=== PATIENT | female | born 1990 | race Caucasian/White ===

== ENCOUNTER → 2019-10-31 08:43 | Outpatient (CLI) | payer OTHER, SELFPAY ==
[2019-11-01 10:18] LABS: Strep Grp B PCR NEG for Grp B Strep
== END ==
PROVIDERS: Visit Provider Family Medicine
DX: Z34.83 Encounter for supervision of other normal pregnancy, third trimester (principal); Z3A.36 36 weeks gestation of pregnancy
CPT/HCPCS: 87653

== ENCOUNTER 2019-11-17 17:44 | Inpatient (IN) | payer OTHER, SELFPAY ==
[2019-11-17] MEDS: LACTATED RINGERS 1,000 ML 100 ML IV ×2 (19:10→22:00)
[2019-11-17 19:29] LABS: Add Manual Diff / Slide Review NO; Basophils Absolute Auto 0 /uL (0-100); Basophils Percent Auto 0.5 % (0-2); Eosinophils Absolute Auto 100 /uL (0-450); Eosinophils Percent Auto 0.8 % (2-4); Hematocrit 36.9 % (36-46); Hemoglobin 12.4 g/dL (12.0-16.0); Lymphocytes Absolute Auto 1700 /uL (1100-4500); Lymphocytes Percent Auto 22.5 % (25-40); Mean Corpuscular HGB Conc 33.7 % (30-36); Mean Corpuscular Hemoglobin 28.7 PG (26-34); Mean Corpuscular Volume 85.2 fL (80-100); Monocytes Absolute Auto 500 /uL (0-900); Monocytes Percent Auto 6.5 % (3-14); Neutrophils Absolute Auto 5200 /uL (1500-7000); Neutrophils Percent Auto 69.7 % (50-75); Platelet Count 163 X10^3/uL (150-400); Red Blood Cell Count 4.33 X10^6/uL (4.0-5.2); Red Cell Distribution Width 14.1 % (11.6-14.8); White Blood Cell Count 7.4 X10^3/uL (4.5-11.0)
--- NOTE | 2019-11-17 19:51 | PM.HP.1 ---
History of Present Illness History of Present Illness Date Patient Seen: 11/17/19 Time Patient Seen: 19:00 Chief complaint: Obs Narrative: 28-year-old female G2 para 0 estimated due date of 11/28/2019 based on early ultrasound LMP 12/06/2019. Patient presents to labor and delivery floor in active labor. Patient states contractions started a little bit yesterday evening throughout the day and last night they were intermittent. This afternoon about 3:00 a.m. they became more regular anywhere from 6-7 minutes apart. Patient states the contractions were a little bit worse when walking around a little bit better when not walking around. This evening he became at times as close together is 5 minutes and they decided to present to the labor and delivery floor. Earlier this morning patient had loss of her mucus plug with a little spotting. She has not been leaking any amniotic fluid she has not had any fevers chills nausea vomiting and feels well. Patient transferred care at late of at approximately 33 weeks. care complications include 1 hour GGT which was 143 but normal 3 hour. Patient non weight was 140. weight currently 164. Blood pressure was normal throughout the . On evaluation on the labor and delivery floor she was joanne regularly blood pressure and vitals were normal she was afebrile examination by the nurse showed 5 cm 95% effaced and -1 station. On my review of the record hematocrit 12.4 in 36.9 GC chlamydia negative urine culture negative TSH 2.73 hepatitis-B surface antigen negative RPR nonreactive rubella immune blood type B positive antibody screen negative HIV nonreactive normal 20 week ultrasound. GBS status is negative. Past medical history of anemia anxiety migraines and amblyopia Surgical history eye surgery x2 D&C tonsils and adenoids Family history of breast cancer and depression Social history she is does not smoke does not use recreational drugs or alcohol during Patient History Medical History Anemia (Acute) Anxiety (Acute) Lyme disease (Acute) Migraines (Acute) Strabismic amblyopia of left eye (Acute) Surgical History H/O eye surgery (Acute) History of dilatation and curettage (Acute ~2018) Hx of adenoidectomy (Acute ~1994) [place] teeth extracted (Acute ~2007) Family & Social History Family History Mother Breast cancer Depression Father Thyroid condition Family/Other Cardiac hypertrophy Grandfather Heart disease Grandmother No problems noted. Grandfather Congestive heart failure Kidney failure Grandmother Congestive heart failure COPD (chronic obstructive pulmonary disease) Social History: household members spouse Tobacco & Substance use: Smoking Status Never smoker Meds Home Medications and Allergies Home Medications Medication Instructions Recorded Confirmed Type prenat.vits,reuben,gym-[id number]-[id number] 1 tab PO DAILY 10/12/19 11/14/19 History breast pump #1 each 10/17/19 11/14/19 Rx Allergies Allergy/AdvReac Type Severity Reaction Status Date / Time No Known Drug Allergies Allergy Verified 11/14/19 09:09 Exam Vital Signs (past 8 hours): . General: Alert no apparent distress. Affect is appropriate. Joanne it is uncomfortable. HEENT: Neck is supple without lymphadenopathy pupils equal round and reactive. Cardio: S1-S2 regular rate and rhythm. Respiratory: Lungs clear to auscultation. Abdomen: Gravid. Extremities: Normal deep tendon reflexes trace edema. Catharine: Joanne every 5 minutes moderate in intensity heart tones: Category 1 heart rate at 140 Objective Labs Result Diagrams: 11/17/19 19:19 Labs: Laboratory Results - last 24 hr 11/17/19 19:19 WBC 7.4 RBC 4.33 Hgb 12.4 Hct 36.9 MCV 85.2 MCH 28.7 MCHC 33.7 RDW 14.1 Plt Count 163 Neut % (Auto) 69.7 Lymph % (Auto) 22.5 L Bea[place]gard % (Auto) 6.5 Eos % (Auto) 0.8 L Baso % (Auto) 0.5 Neut # (Auto) 5200 Lymph # (Auto) 1700 [place] # (Auto) 500 Eos # (Auto) 100 Baso # (Auto) 0 Assessment & Plan Assessment & Plan narrative: 28-year-old female G2 para 0 at 38 and 3 weeks gestational age in labor. On my exam patient is 5-6 cm -1 station with bulging bag. Vital signs are stable she is afebrile she is joanne regularly. Patient is uncomfortable. And requesting an epidural. Patient care orders were written for. Consents were obtained and signed. Proceed with active management. Baby's heart tones and strip reviewed so category 1 tracing. Proceed with active management of labor.
--- NOTE | 2019-11-17 21:00 | PM.OBPNLAB ---
Date/Time Date Patient Seen: 11/17/19 Time Patient Seen: 21:00 Pain Control Pain control: tolerating well and epidural Pelvic Exam Dilation (cm): 6 Effacement (%): 90 station: -1 Amniotic membrane status: Leaking Contractions Contractions on admission: regular Monitor mode: External Contraction pattern: Regular Status status: Category l Heart Rate Baseline: 130 Monitor Accelerations: Present Monitor Variability: Moderate Assessment and Plan Assessment: active labor Plan: continuous present management Comments: Re-examination of cervix. 6 cm 90% effaced -1 station. Patient just received epidural doing well blood pressure stable heart tones category 1. Rupture of membranes clear fluid. Baby vertex position. Tolerating contractions much better with epidural. Vital signs are stable. Afebrile.
[2019-11-17] MEDS: FENT 2MCG/ML BUPIV 0.125% EPI 200 MCG/100 ML PLAST..BAG 6 MCG EPIDURAL (21:35)
[2019-11-17 22:54] VITALS: BP 120/80
--- NOTE | 2019-11-17 23:58 | PM.OBPNLAB ---
Date/Time Date Patient Seen: 11/17/19 Time Patient Seen: 23:40 Pain Control Pain control: tolerating well and epidural Pelvic Exam Dilation (cm): 9 Effacement (%): 90 station: 0 Amniotic membrane status: Leaking Contractions Monitor mode: External Contraction pattern: Regular Status status: Category l Monitor Accelerations: Present Monitor Variability: Moderate Assessment and Plan Assessment: active labor Plan: continuous present management Comments: Patient comfortable with epidural vital signs are stable. Category 1 tracing. Contractions Q 2-3 minutes. Patient not on Pitocin. Will start pushing here in the next hour or so.
[2019-11-18] MEDS: OXYTOCIN 10 UNIT/ML VIAL IM (01:15)
--- NOTE | 2019-11-18 01:29 | P.PCN_ITS ---
Procedures Date/Time Date of procedure: 11/18/19 Time of procedure: : General Procedure description: Stage I of labor 6 hours and hospital additional 4 hours at home. During hospital stay stage I of labor patient arrived received IV vero cement and blood testing normal hemoglobin hematocrit vital signs were stable on admission afebrile intact membranes 5 cm dilated -1 station. Patient requested an epidural received epidural anesthesia with good results. Patient made slow steady progress a till she became completed 10 cm. During stage I of labor she had category 1 tracing vital signs were stable she was afebrile. She had amniotomy at 6 cm with clear fluid. Baby made good descent through the canal. Stage II of labor 1 hour. During stage II of labor category 1 and category 2 tracing. Vital signs were stable. If baby descended gradually through the canal. Under at the dural anesthesia baby was born in the vertex position with occiput anterior. The delivery of the head shoulders were easily delivered there was no nuchal cord baby was placed on mother's abdomen. Baby had spontaneous cry and was vigorous. Stage III of labor approximately 10 minutes. Delivery of intact placenta 3 vessels. Was a small internal tear which was repaired with a 2 0 Vicryl stitch without difficulty. Patient had 2 small skin tags on her perineal area which she would desire to have removed these were removed at the time of repair of the midline perineal tear. Afterwards baby was resting comfortably. Aftercare orders were written for per protocol.
[2019-11-18 07:08] LABS: Hematocrit 32.5 % (36-46); Hemoglobin 11.1 g/dL (12.0-16.0)
[2019-11-18] MEDS: DOCUSATE 100 MG CAPSULE PO (08:43)
[2019-11-18] MEDS: PRENATAL VIT,CALC/IRON/FOLIC 1 TABLET 1 TAB PO (08:43)
--- NOTE | 2019-11-18 09:02 | PM.PN.1 ---
Subjective Subjective Date Patient Seen: 11/18/19 Time Patient Seen: 09:02 Interval history: 28-year-old female day 1. Status post vaginal delivery doing well. Some mild abdominal cramping. Normal urination. Eating well. She has ambulated okay. No lightheaded and dizziness vital signs are stable. Bleeding as anticipated. No nursing staff concerns. Exam Narrative Exam Narrative: Vitals: [Pulse 68 respiratory rate 18 temperature 9 8.8 input 2400 output 1800]. General: Alert no apparent distress. Affect is appropriate. Charo it is uncomfortable. HEENT: Neck is supple without lymphadenopathy pupils equal round and reactive. Cardio: S1-S2 regular rate and rhythm. Respiratory: Lungs clear to auscultation. Abdomen: Uterus firm. Extremities: Normal deep tendon reflexes trace edema. Objective Labs Result Diagrams: 11/18/19 06:25 Labs: Laboratory Results - last 24 hr 11/17/19 11/17/19 11/18/19 19:19 19:19 06:25 WBC 7.4 RBC 4.33 Hgb 12.4 11.1 L Hct 36.9 32.5 L MCV 85.2 MCH 28.7 MCHC 33.7 RDW 14.1 Plt Count 163 Neut % (Auto) 69.7 Lymph % (Auto) 22.5 L Bartholomew % (Auto) 6.5 Eos % (Auto) 0.8 L Baso % (Auto) 0.5 Neut # (Auto) 5200 Lymph # (Auto) 1700 Bartholomew # (Auto) 500 Eos # (Auto) 100 Baso # (Auto) 0 Blood Type B Positive Antibody Screen Negative Assessment & Plan Assessment & Plan narrative: day 1. Vaginal delivery doing well. No concerns. Continue routine care hemoglobin hematocrit vital signs stable pain is well controlled with ibuprofen vaginal bleeding as expected. Tolerating diet. Good bladder control.
[2019-11-18] MEDS: IBUPROFEN 600 MG TABLET PO (20:08)
[2019-11-19] MEDS: IBUPROFEN 600 MG TABLET PO (08:08)
[2019-11-19] MEDS: PRENATAL VIT,CALC/IRON/FOLIC 1 TABLET 1 TAB PO (08:08)
[2019-11-19] MEDS: DOCUSATE 100 MG CAPSULE PO (08:08)
--- NOTE | 2019-11-19 08:24 | PM.DS.1 ---
History of Present Illness History of Present Illness Chief complaint: Obs Narrative: 28-year-old female G2 para 0 estimated due date of 11/28/2019 based on early ultrasound LMP 12/06/2019. Patient presents to labor and delivery floor in active labor. Patient states contractions started a little bit yesterday evening throughout the day and last night they were intermittent. This afternoon about 3:00 a.m. they became more regular anywhere from 6-7 minutes apart. Patient states the contractions were a little bit worse when walking around a little bit better when not walking around. This evening he became at times as close together is 5 minutes and they decided to present to the labor and delivery floor. Earlier this morning patient had loss of her mucus plug with a little spotting. She has not been leaking any amniotic fluid she has not had any fevers chills nausea vomiting and feels well. Patient transferred care at late of at approximately 33 weeks. care complications include 1 hour GGT which was 143 but normal 3 hour. Patient non weight was 140. weight currently 164. Blood pressure was normal throughout the . On evaluation on the labor and delivery floor she was joanne regularly blood pressure and vitals were normal she was afebrile examination by the nurse showed 5 cm 95% effaced and -1 station. On my review of the record hematocrit 12.4 in 36.9 GC chlamydia negative urine culture negative TSH 2.73 hepatitis-B surface antigen negative RPR nonreactive rubella immune blood type B positive antibody screen negative HIV nonreactive normal 20 week ultrasound. GBS status is negative. Past medical history of anemia anxiety migraines and amblyopia Surgical history eye surgery x2 D&C tonsils and adenoids Family history of breast cancer and depression Social history she is does not smoke does not use recreational drugs or alcohol during Discharge Providers Provider Date of admission: 11/17/19 17:44 Discharge Date: 11/19/19 Primary care physician: Cheng Gayle MD Consults: 11/19/19 01:32 Consult to Draw Frame Operator Routine Comment: Discharge provider: Cheng Gayle MD Summary Hospital Course Discharge Diagnosis: Term vaginal delivery Hospital Course: Routine care Exam Vital Signs (past 8 hours): . General: Alert no apparent distress. Affect is appropriate. Joanne it is uncomfortable. HEENT: Neck is supple without lymphadenopathy pupils equal round and reactive. Cardio: S1-S2 regular rate and rhythm. Respiratory: Lungs clear to auscultation. Abdomen: Uterus firm. Extremities: Normal deep tendon reflexes trace edema. Objective Labs Result Diagrams: 11/18/19 06:25 Discharge Plan Discharge Plan Patient Disposition: Home Discharge comment: Home follow-up in 6 weeks Discharge orders & Medications Prescriptions: New docusate sodium [DOK] 100 mg Capsule 100 mg PO DAILY Qty: 30 RF: 0 ibuprofen 600 mg Tablet 600 mg PO Q6HR PRN (Reason: Pain, Mild (1-3)) Qty: 30 RF: 0 Continued prenat.vits,reuben,cew-uaec-[id number] Tablet 1 tab PO DAILY RF: 0 No Action (DME) breast pump Device See Rx Instructions .ROUTE .MEDSUPPLY Qty: 1 RF: 0 Follow up/Referrals: Cheng Gayle MD [Primary Care Provider] - Visit Report/Discharge Packet Visit Report Forms: Patient Portal/API, Stroke Signs & Symptoms Discharge Data Primary Care Provider: Cheng Gayle
[2019-11-19 11:16] VITALS: BP 108/66; PULSE 74; RESP 16; TEMP 36.4
[2019-11-19] MEDS: MEASLES,MUMPS,RUBELLA VACC/PF 0.5 ML VIAL SUBCUT (12:06)
== END 2019-11-19 12:20 | disposition home or self-care (01) | DRG 768 ==
PROVIDERS: Admitting Provider Family Medicine; PCP Family Medicine; Referring Provider Family Medicine; Visit Provider Family Medicine
DX: O71.4 Obstetric high vaginal laceration alone (principal); Z37.0 Single live birth; L91.8 Other hypertrophic disorders of the skin; Z3A.38 38 weeks gestation of pregnancy
CPT/HCPCS: 01967; 36415; 59050; 59410; 85014; 85018; 85025; 86850; 86900; 86901; G0379; J2590

== ENCOUNTER → 2022-01-14 13:02 | Outpatient (CLI) | payer OTHER, SELFPAY ==
[2022-01-14 13:55] LABS: Add Manual Diff / Slide Review NO; Basophils Absolute Auto 0 /uL (0-100); Basophils Percent Auto 0.4 % (0-2); Eosinophils Absolute Auto 100 /uL (0-450); Eosinophils Percent Auto 1.9 % (2-4); Hematocrit 35.1 % (36-46); Hemoglobin 12.1 g/dL (12.0-16.0); Lymphocytes Absolute Auto 1700 /uL (1100-4500); Lymphocytes Percent Auto 23.7 % (25-40); Mean Corpuscular HGB Conc 34.3 % (30-36); Mean Corpuscular Hemoglobin 28.9 PG (26-34); Mean Corpuscular Volume 84.1 fL (80-100); Monocytes Absolute Auto 500 /uL (0-900); Monocytes Percent Auto 6.4 % (3-14); Neutrophils Absolute Auto 5000 /uL (1500-7000); Neutrophils Percent Auto 67.6 % (50-75); Platelet Count 188 X10^3/uL (150-400); Red Blood Cell Count 4.18 X10^6/uL (4.0-5.2); Red Cell Distribution Width 13.2 % (11.6-14.8); White Blood Cell Count 7.4 X10^3/uL (4.5-11.0)
[2022-01-14 14:02] LABS: Appearance Urine UA CLEAR; Bilirubin Urine UA NEGATIVE (NEGATIVE); Color Urine UA YELLOW; Glucose Urine UA NEGATIVE (Negative); Ketones Urine UA TRACE (NEGATIVE); Leukocyte Esterase Urine UA TRACE (NEGATIVE); Nitrite Urine UA NEGATIVE (Negative); Occult Blood Urine UA 1+ (Negative); Protein Urine UA NEGATIVE (Negative); Urobilinogen Urine UA 0.2 E.U./dL (0.2)
[2022-01-14 14:13] LABS: RBC Urine 1-5/HPF (0-5/HPF); Squamous Epithelial Cell Urine 5-10 /HPF (0-5/HPF); WBC Urine 5-10/HPF (0-5/HPF)
[2022-01-14 14:14] LABS: Bacteria Urine Many (>30); Culture Indicated Urine Cult Not Indicated
[2022-01-15 07:44] LABS: RPR Screen Non Reactive (Non Reactive); Varicella IgG Antibody 951 index (Immune >165)
[2022-01-15 20:36] LABS: Hepatitis B Surface Antigen NEGATIVE s/c (NEGATIVE); Rubella Antibody IgG 58.6 IU/mL (>15)
[2022-01-15 20:47] LABS: HIV 1 & 2 Ab/Ag 4th Gen Combo NEGATIVE (NEGATIVE); Hep C Virus Ab w/Reflex Quant NEGATIVE s/c (NEGATIVE)
== END ==
PROVIDERS: PCP Family Medicine; Referring Provider Family Medicine; Visit Provider Family Medicine
DX: Z34.80 Encounter for supervision of other normal pregnancy, unspecified trimester (principal)
CPT/HCPCS: 36415; 80055; 81003; 81015; 86787; 86803; 86850; 86900; 86901; 87077; 87086; 87186; 87389

== ENCOUNTER → 2022-02-12 12:17 | Outpatient (CLI) | payer OTHER, SELFPAY ==
--- NOTE | 2022-02-12 12:18 | DI.US.S_ITS ---
PROCEDURE: US OB >= 14 WEEKS FETUS INDICATIONS: 20 WEEK ANATOMY SCAN. OUTSIDE/PRIOR DATING DATA: Last menstrual period (LMP): 09/28/2021. LMP-based estimated date of delivery (HUE): 07/05/2022. First dating scan (date and location): 02/12/2022. Estimated date of delivery (HUE) from first dating scan: 06/30/2022. TECHNIQUE: Real-time scanning was performed of the fetus, with image documentation and biometric measurements. Endovaginal scanning: No COMPARISON: None. FINDINGS: General: A single living intrauterine gestation is present. Presentation: Variable. Placenta: Placental position is posterior , without previa. Amniotic fluid index: 15.6 cm, normal range is 5-24 cm. heart rate: 153 beats per minute. Maternal cervical canal: 4.5 cm long. Normal lower limit is 2.5 cm. biometrics: Biparietal diameter: 4.9 cm, 20 week 6 day Head circumference: 17.8 cm, 20 week 2 day Abdominal circumference: 15.2 cm, 20 week 3 day Femur length: 3.1 cm, 19 week 4 day Clinically estimated gestational age: Not applicable Composite gestational age from present scan: 20 week 2 day Estimated weight and percentile: 329 g, 73rd percentile Anatomic survey: Neuro: Ventricles are non-dilated at less than 10 mm. Cisterna magna is normal at 3-11 mm. Cerebellum is normal in size and morphology. Nuchal skin fold: Normal at less than 6 mm between 14-21 weeks gestational age. Face: Not well visualized, but possible small cleft in the lip Spine: No evidence for spina bifida. Heart: 4-chambered heart is present, with normal ventricular outflow tracts. Diaphragm: Diaphragm is intact. Stomach: Left-sided stomach is present. Kidneys: No hydronephrosis. Normal is less than 5 mm in 2nd trimester, less than 7 mm in 3rd trimester. Cord: Probable 2 vessel cord noted. Bladder: Normal in size. Extremities: All 4 extremities identified. IMPRESSION: 1. Single live intrauterine consistent with 20 week 2 day gestation. 2. 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 Approved by: Stanley Self M.D. on 02/12/2022 at 14:29
== END ==
PROVIDERS: PCP Family Medicine; Referring Provider Family Medicine; Visit Provider Family Medicine
DX: Z36.89 Encounter for other specified antenatal screening (principal); Z3A.20 20 weeks gestation of pregnancy
CPT/HCPCS: 76811

== ENCOUNTER → 2022-04-25 07:45 | Outpatient (CLI) | payer OTHER, SELFPAY ==
[2022-04-25 09:57] LABS: Add Manual Diff / Slide Review NO; Basophils Absolute Auto 0 /uL (0-100); Basophils Percent Auto 0.6 % (0-2); Eosinophils Absolute Auto 200 /uL (0-450); Eosinophils Percent Auto 3.2 % (2-4); Hematocrit 33.9 % (36-46); Hemoglobin 11.3 g/dL (12.0-16.0); Lymphocytes Absolute Auto 1500 /uL (1100-4500); Mean Corpuscular HGB Conc 33.4 % (30-36); Mean Corpuscular Hemoglobin 28.5 PG (26-34); Mean Corpuscular Volume 85.2 fL (80-100); Monocytes Absolute Auto 600 /uL (0-900); Monocytes Percent Auto 7.4 % (3-14); Neutrophils Absolute Auto 5100 /uL (1500-7000); Neutrophils Percent Auto 68.8 % (50-75); Platelet Count 157 X10^3/uL (150-400); Red Blood Cell Count 3.98 X10^6/uL (4.0-5.2); Red Cell Distribution Width 13.6 % (11.6-14.8); White Blood Cell Count 7.5 X10^3/uL (4.5-11.0)
[2022-04-25 11:43] LABS: GTT (PREG) 1 Hour PP 50gm Dose 160 mg/dL (76-139)
== END ==
PROVIDERS: PCP Family Medicine; Referring Provider Family Medicine; Visit Provider Family Medicine
DX: Z34.92 Encounter for supervision of normal pregnancy, unspecified, second trimester (principal); Z3A.28 28 weeks gestation of pregnancy
CPT/HCPCS: 36415; 82950; 85025

== ENCOUNTER → 2022-05-01 13:39 | Outpatient (CLI) | payer OTHER, SELFPAY ==
--- NOTE | 2022-05-21 08:56 | P.HOLT.S_ITS ---
Support Representative Report Referral & Results Date Patient Seen: 05/01/22 Requesting provider: Carolyn Redman Indication: Palpitations Duration of monitoring (days): 13 Diary information: There was 1 patient triggered event associated with sinus rhythm Data: Minimum heart rate identified was 54 beats per minute at 01:44 on 05/10/2022 Maximum sinus heart rate was 135 beats per minute at 06:45 on 05/10/2022. This was also the maximum overall heart rate Less than 1% of identified beats were ventricular or supraventricular ectopic in origin, which would classify them as rare. There were no episodes of atrial fibrillation SVT or pauses of 3 seconds or longer identified on this study Impression: 12+ day registered nurse cardiac demonstrating no notable dysrhythmia
== END ==
PROVIDERS: PCP Family Medicine; Referring Provider Family Medicine; Visit Provider Family Medicine
DX: Z34.90 Encounter for supervision of normal pregnancy, unspecified, unspecified trimester (principal); R00.2 Palpitations
CPT/HCPCS: 93242; 93248

== ENCOUNTER → 2022-05-07 07:54 | Outpatient (CLI) | payer OTHER, SELFPAY ==
[2022-05-07 08:59] LABS: Glucose Fasting Gestational 87 mg/dL (76-95)
[2022-05-07 10:32] LABS: Glucose 1 Hour Gest 209 mg/dL (76-180)
[2022-05-07 11:04] LABS: Glucose 2 Hour Gest 148 mg/dL (76-155)
[2022-05-07 11:21] LABS: Glucose Tol Interp,Gestational INTERPRETATION
[2022-05-07 12:08] LABS: Glucose 3 Hour Gest 140 mg/dL (76-140)
== END ==
PROVIDERS: PCP Family Medicine; Referring Provider Family Medicine; Visit Provider Family Medicine
DX: Z34.80 Encounter for supervision of other normal pregnancy, unspecified trimester (principal); R73.09 Other abnormal glucose
CPT/HCPCS: 36415; 82951; 82952

== ENCOUNTER → 2022-05-15 08:35 | Outpatient (CLI) | payer OTHER, SELFPAY ==
--- NOTE | 2022-05-15 15:15 | DIAB.GDA ---
Initial Gestational Diabetes Assessment Name: Janie Arana (Codi) Date: 05/15/22 Time:840-940a Dx: Abnormal glucose in Provider:Feroz HUE: 07/05/22 Weeks: 33 Codi presents today for initial visit regarding abnormal OGTT. No official GDM diagnosis. States she had a similar OGTT with her last with her daughter 2.5 years ago. Codi is having a boy! States she is [place] and eats mostly Mediterranean with some dairy. Has recently reduced carb intake in response to elevated OGTT. Eats small frequent meals. Endorses some early satiety this stage in the . States the baby is measuring a little big inthe 70th percentile. Also states he is measuring long. 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 Diet Recall: wakes: 630-730a 930-10a: egg, toast, fruit or protein shake (30-50g CHO) 130-2p: leftovers or crackers with beans and zucchini (30-45g CHO) 4p: chicken salad with veggies and +/- fruit (0-20g CHO) 7p: chicken with veggies, 1/3-1/2c rice and salad (15-20g CHO) Beverages: 80-96oz water, sometimes coconut water (8oz is 11g CHO) Anthropometrics: Ht: 64 Wt: 164# last OB Prepregnancy wt: 139# Physical Activity: Stationary bike 2-3x per week for 30-40 min, weight training 3-4 x per week for 20 min, yoga 15 min daily Self-Monitoring Blood Glucose: Has not started yet. States the plan is to check FBG and 1 x 2hr pc per day Diabetes Medications: None Pertinent Labs: Screen 160 mg/dL; OGTT: 87, 209H, 148, 140 Nutrition Rx: Carbohydrates: Daily: 180-200g Meal: 45-g lunch and dinner; 30g breakfast Snack: 15-30g Nutrition Diagnosis: Altered nutrition related lab value r/t GDM dx aeb recent OGTT Nutrition and food related knowledge deficit r/t new abnormal glucose dx aeb OGTT and pt report Intervention: This participant was very receptive. Provided appropriate educational handouts. Discussed the following topics: Insulin resistance in pathophysiology and impact of hyperglycemia on mom and baby Ways to reduce risk T2DM Plate Method, meal timing, carb counting, pairing macronutrients and spreading out CHO for better BG management Blood glucose goals (FBG: <95 and 2 hour <120 mg/dL); importance of checking 2x per day (FBG and pc) Impact of macronutrients on blood glucose Recommended servings for carbohydrates at meals and snacks Brainstormed appropriate meal plan based on her food preferences Role of physical activity and following provider guidelines for safety Goals: Check BG BID Balance carbs and pro at meals and snacks Follow nutrition rx Add 730 am snack Follow-up: FLORECITA ALBERTS follow-up in one week for BG review. Plans to see OB in two weeks. Heather Ac RDN, [facility] Certified Diabetes Care and Unit Technician T: [phone] F: [phone] [email or web address] Thank you for this referral
== END ==
PROVIDERS: PCP Family Medicine; Referring Provider Family Medicine; Visit Provider Family Medicine
DX: O99.810 Abnormal glucose complicating pregnancy (principal); Z3A.33 33 weeks gestation of pregnancy; Z71.3 Dietary counseling and surveillance
CPT/HCPCS: 97802

== ENCOUNTER → 2022-05-21 08:29 | Outpatient (CLI) | payer OTHER, SELFPAY ==
--- NOTE | 2022-05-21 09:21 | DIAB.GDFU ---
Follow-up Assessment Name: Janie Arana (Codi) Date: 05/21/22 Time: 830-910a Dx: Abnormal glucose in Provider:Feroz HUE: 07/05/22 Weeks: 33-34 Codi presents for follow-up regarding elevated OGTT. States she has been pairing carbs and pro, exercising, and checking BG BID. Baby is measuring large but seems providers are thinking this is unrelated to BG, which I would agree. She reports father is a bigger person and her family births large babies. She has increased pro at breakfast with an extra egg. Tried adding shake in the peoplesoft crm developer, but states this has been a challenge- waking later in the morning. Reports for a few months with her daughter. Potential for clef palate-- has received specialized bottles for this from [facility] and her breast pump. Some higher carb meals, which rendered one elevation. Otherwise, has been measuring carb intake. Reduced appetite but no weight loss. Anthropometrics: Ht: 64 Wt: 167# last OB Prepregnancy wt: 139# Physical Activity: Stationary bike 2-3x per week for 30-40 min, weight training 3-4 x per week for 20 min, yoga 15 min daily Self-Monitoring Blood Glucose: No FBG elevations. One 52 mg/dL after extended fast and waking very hungry. No symptoms of hypo. Questions regarding if she should check FBG after her workout or before. Suggested before. Another low breakfast pc of 69 mg/dL after weight lifting, small breakfast and waiting 2.5 hrs to check. One elevated pc number after dinner of 148 with sweets late in evening. Date Pre Post Pre Post Pre Post HS 05/14 77 05/15 92 107 05/16 86 148 05/14 94 1119 05/18 93 85 05/19 89 69 2.5h 109 05/20 52 118 05/21 88 Diabetes Medications: None Pertinent Labs: Screen 160 mg/dL; OGTT: 87, 209H, 148, 140 Intervention: This participant was very receptive. Provided appropriate educational handouts. Discussed the following topics: Recent blood sugar results and impact of food and exercise Pancreas insulin production/sensitivity and lows Review of FBG checks pre workout, encouraged snack prior to workout Benefits, resources, and nutrition for recommendations for nutrition and physical activity recommendations for T2DM risk reduction Option for checking blood sugars twice per week (goal: fasting <100 mg/dL and 2 hour pc <140 mg/dL) until 6 week check-up HgA1c as appropriate Goals: Check BG BID- met Balance carbs and pro at meals and snacks- met Follow nutrition rx- met Add 730 am snack- met Check FBG pre workout- new Follow-up: FLORECITA ALBERTS follow-up prn. Encouraged Codi to call or message with follow-up needs prn. She agreed to this plan. Heather Ac RDN, [facility] Certified Diabetes Care and Director Talent Management T: [phone] F: [phone] [email or web address] Thank you for this referral
== END ==
PROVIDERS: PCP Family Medicine; Referring Provider Family Medicine; Visit Provider Family Medicine
DX: O99.810 Abnormal glucose complicating pregnancy (principal); Z3A.33 33 weeks gestation of pregnancy
CPT/HCPCS: G0108

== ENCOUNTER 2022-06-05 13:23 | Outpatient (CLI) | payer OTHER, SELFPAY ==
--- NOTE | 2022-06-05 13:51 | PM.OBTRLD ---
Visit Information Visit Information Date of evaluation: 06/05/22 Primary OB Provider: Kellee Martinez On-call OB Provider: Kellee Martinez Reason for Evaluation: Yes non-stress test Comments/Additional reasons for admission: 31-year-old at 35 weeks and 5 days here for NST due to 2 vessel cord and cleft palate. Vital Signs Vital Signs: Temperature 36.5? blood pressure 120/66 heart rate 80 PFSH Medical History Anemia Anxiety Dysphagia Gum disease Lyme disease Migraines Strabismic amblyopia of left eye Surgical History H/O eye surgery History of dilatation and curettage (~2018) History of tonsillectomy [place] teeth extracted (~2006) Family History Mother Breast cancer Depression Father Thyroid condition Family/Other Cardiac hypertrophy Grandfather Heart disease Grandmother No problems noted. Grandfather Congestive heart failure Kidney failure Grandmother Congestive heart failure COPD (chronic obstructive pulmonary disease) Social History marital status: number of children: 1 household members: spouse and children lives independently: Yes housing: house pets and animals: Yes (Dog X 1, aware of Toxoplasmosis) education level: college occupational status: unemployed ([employer]) and previously employed current occupational exposures/hazards: No special raul needs: No seatbelt use: always water heater temp set < 120 deg: Yes working smoke detector in home: Yes fire extinguisher in home: Yes carbon monox detector in home: Yes firearms in home: Yes firearms unloaded and locked: Yes do you feel safe at home: Yes Smoking Status: Never smoker second hand exposure: No alcohol intake: former substance use type: does not use during the past year weight has: remained stable well-balanced diet: daily or most days daily servings fruits/ve-4 caffeine: No (200mg per day) Type(s) of exercise: regular exercise frequency: 3-4 times per week Evaluation Evaluation Baseline heart rate: 130 Variability: Moderate (11-25) monitor accelerations: Present Monitor Decelerations: Absent Category of Tracing: Reactive Diagnosis, Plan/Disposition Final Diagnosis (1) 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 NST reactive. Follow-up as scheduled in clinic or return sooner if needed. OB Disposition: home
== END 2022-06-05 14:00 | disposition home or self-care (01) ==
LOC: LABOR 13:51 → OB 06-06 08:30
PROVIDERS: PCP Family Medicine; Referring Provider Family Medicine; Visit Provider Family Medicine
DX: O35.8XX0 Maternal care for other (suspected) fetal abnormality and damage, not applicable or unspecified (principal); Z3A.35 35 weeks gestation of pregnancy
CPT/HCPCS: 59025; G0378; G0379

== ENCOUNTER 2022-06-13 13:55 | Outpatient (CLI) | payer OTHER, SELFPAY ==
--- NOTE | 2022-06-13 15:01 | P.TNLD_ITS ---
Visit Information Visit Information Date of evaluation: 06/13/22 Primary OB Provider: Carolyn Redman Reason for Evaluation: Yes non-stress test Comments/Additional reasons for admission: 31yo at 36w6d here for NST for 2 vessel cord. She is feeling her baby move regularly. No vaginal bleeding or LOF. Intermittent contractions. [facility] Medical History Anemia Anxiety Dysphagia Gum disease Lyme disease Migraines Strabismic amblyopia of left eye Surgical History H/O eye surgery History of dilatation and curettage (~2018) History of tonsillectomy [place] teeth extracted (~2006) Family History Mother Breast cancer Depression Father Thyroid condition Family/Other Cardiac hypertrophy Grandfather Heart disease Grandmother No problems noted. Grandfather Congestive heart failure Kidney failure Grandmother Congestive heart failure COPD (chronic obstructive pulmonary disease) Social History marital status: number of children: 1 household members: spouse and children lives independently: Yes housing: house pets and animals: Yes (Dog X 1, aware of Toxoplasmosis) education level: college occupational status: unemployed (IH) and previously employed current occupational exposures/hazards: No special raul needs: No seatbelt use: always water heater temp set < 120 deg: Yes working smoke detector in home: Yes fire extinguisher in home: Yes carbon monox detector in home: Yes firearms in home: Yes firearms unloaded and locked: Yes do you feel safe at home: Yes Smoking Status: Never smoker second hand exposure: No alcohol intake: former substance use type: does not use during the past year weight has: remained stable well-balanced diet: daily or most days daily servings fruits/ve-4 caffeine: No (200mg per day) Type(s) of exercise: regular exercise frequency: 3-4 times per week Evaluation Evaluation Baseline heart rate: 120 Variability: Moderate (11-25) monitor accelerations: Present Monitor Decelerations: Absent Category of Tracing: Reactive Diagnosis, Plan/Disposition Final Diagnosis (1) Two vessel umbilical cord: Status: Acute (2) Encounter for supervision of other normal , unspecified trimester: Status: Acute Plan/Disposition Plan: 31yo at 36w6d here for NST for 2 vessel cord. NST reactive. Continue weekly testing. OB Disposition: home
== END 2022-06-13 14:40 | disposition home or self-care (01) ==
LOC: LABOR 14:00 → OB 06-25 12:13
PROVIDERS: PCP Family Medicine; Referring Provider Family Medicine; Visit Provider Family Medicine
DX: O43.193 Other malformation of placenta, third trimester (principal); Z3A.36 36 weeks gestation of pregnancy; Z36.85 Encounter for antenatal screening for Streptococcus B
CPT/HCPCS: 59025; 87653; G0378; G0379

== ENCOUNTER → 2022-06-13 15:34 | Outpatient (CLI) | payer OTHER, SELFPAY ==
[2022-06-14 12:36] LABS: Strep Grp B PCR NEG for Grp B Strep
== END ==
PROVIDERS: PCP Family Medicine; Visit Provider Family Medicine
DX: Z36.85 Encounter for antenatal screening for Streptococcus B (principal)
CPT/HCPCS: 87653

== ENCOUNTER 2022-06-18 16:40 | Observation (INO) | payer OTHER, SELFPAY | END 2022-06-18 19:30 | disposition home or self-care (01) | LOC: LABOR 16:42 | PROVIDERS: Admitting Provider Family Medicine; PCP Family Medicine; Referring Provider Family Medicine; Visit Provider Family Medicine | DX: O47.1 False labor at or after 37 completed weeks of gestation (principal); Z3A.37 37 weeks gestation of pregnancy | CPT/HCPCS: 59025; 59050; G0378; G0379 ==

== ENCOUNTER 2022-06-27 21:04 | Outpatient (CLI) | payer OTHER, SELFPAY | END 2022-06-27 22:20 | disposition home or self-care (01) | LOC: OB 07-01 14:13 | PROVIDERS: PCP Family Medicine; Referring Provider Obstetrics & Gynecology; Visit Provider Obstetrics & Gynecology | DX: O47.1 False labor at or after 37 completed weeks of gestation (principal); Z3A.38 38 weeks gestation of pregnancy | CPT/HCPCS: 59025; G0378; G0379 ==

== ENCOUNTER 2022-06-28 18:06 | Inpatient (IN) | payer OTHER, SELFPAY ==
[2022-06-28 18:09] VITALS: BP 131/75
[2022-06-28 20:18] LABS: Add Manual Diff / Slide Review NO; Basophils Absolute Auto 100 /uL (0-100); Basophils Percent Auto 0.8 % (0-2); Eosinophils Absolute Auto 200 /uL (0-450); Eosinophils Percent Auto 1.6 % (2-4); Hematocrit 35.7 % (36-46); Hemoglobin 12.1 g/dL (12.0-16.0); Lymphocytes Absolute Auto 1800 /uL (1100-4500); Lymphocytes Percent Auto 18.3 % (25-40); Mean Corpuscular Volume 82.6 fL (80-100); Monocytes Absolute Auto 700 /uL (0-900); Monocytes Percent Auto 6.7 % (3-14); Neutrophils Absolute Auto 7000 /uL (1500-7000); Neutrophils Percent Auto 72.6 % (50-75); Platelet Count 168 X10^3/uL (150-400); Red Blood Cell Count 4.32 X10^6/uL (4.0-5.2); Red Cell Distribution Width 14.7 % (11.6-14.8); White Blood Cell Count 9.7 X10^3/uL (4.5-11.0)
[2022-06-28] MEDS: LACTATED RINGERS 1,000 ML 100 ML IV ×2 (20:24→21:39)
[2022-06-28 20:51] LABS: COVID19 -Nasal RAPID Negative (Negative)
--- NOTE | 2022-06-28 20:51 | PM.AN.REGBLK ---
Regional Block Pre-procedure Procedure: Continuous Lumbar Epidural for L&D Attending OB provider: Carolyn Redman PMH/ROS narrative: term labor, no complications. MFM following for cleft palate ASA Class: II Labs: Hct 35.7 % (36-46) L 06/28/22 18:30 Plt Count 168 X10^3/uL (150-400) 06/28/22 18:30 Medications: Current Medications Generic Name Dose Route Start Last Admin Trade Name Freq PRN Reason Stop Dose Admin Calcium Carbonate 500 mg 06/28/22 19:46 Calcium Carbonate 500 Mg Tab PO Q2HR PRN Dyspepsia Carboprost Tromethamine 250 mcg 06/28/22 19:46 Carboprost 250 Mcg/Ml Ampul IM Q90M PRN Bleeding Diphenhydramine HCl 25 mg 06/28/22 20:49 Diphenhydramine 50 Mg/Ml Vial IV Q10M PRN Pruritis Fentanyl 50 mcg 06/28/22 19:46 Fentanyl 100 Mcg/2 Ml Inj IV Q1H PRN Pain, Moderate (4-6) Lactated Ringer's 1,000 mls @ 100 mls/hr 06/28/22 20:00 06/28/22 20:24 Lactated Ringers IV 100 mls/hr CONT LEXUS Administration Oxytocin/Lactated Ringer's 30 unit in 500 mls @ 200 mls/hr 06/28/22 19:46 Oxytocin Premix IV CONT PRN Bleeding Protocol Tranexamic Acid 1,000 mg/ 100 mls @ 200 mls/hr 06/28/22 19:46 Sodium Chloride IV NOW PRN Bleeding FENT 2MCG/ML BUPIV 0.125% EPI 200 mcg in 100 mls @ 6 mls/hr 06/28/22 21:00 Fentanyl/Bupiv/Ns 2mcg/Ml - 0.125% EPIDURAL CONT LEXUS Methylergonovine Maleate 0.2 mg 06/28/22 19:46 Methylergonovine 0.2 Mg Tablet PO Q6HR PRN Heavy Bleeding Methylergonovine Maleate 0.2 mg 06/28/22 19:46 Methylergonovine 0.2 Mg/Ml Vial IM NOW PRN Bleeding Misoprostol 800 mcg 06/28/22 19:46 Misoprostol 200 Mcg Tablet [place] NOW PRN Bleeding Misoprostol 1,000 mcg 06/28/22 19:46 Misoprostol 200 Mcg Tablet [place] NOW PRN Bleeding Misoprostol 400 mcg 06/28/22 19:46 Misoprostol 200 Mcg Tablet SL NOW PRN Bleeding Nalbuphine HCl 2.5 mg 06/28/22 20:49 Nalbuphine 20 Mg/Ml Ampul IV Q10M PRN Pruritis Naloxone HCl 0.2 mg 06/28/22 19:46 Naloxone 0.4 Mg/Ml Vial IV Q2MIN PRN Opiate Reversal Ondansetron HCl 4 mg 06/28/22 19:46 Ondansetron 4 Mg/2 Ml Inj IV Q4HR PRN Nausea And Vomiting Oxytocin 10 unit 06/28/22 19:46 Oxytocin 10 Unit/Ml Vial IM NOW PRN Bleeding Allergies: Allergies Allergy/AdvReac Type Severity Reaction Status Date / Time No Known Drug Allergies Allergy Verified 06/02/22 13:50 Procedure Insertion date: 06/28/22 Insertion time: 21:06 Prep/Local: betadine x3 and 1% lidocaine Interspace: L3-4 Patient position: sitting Needle: 18 gauge Justinmind (CSE: 27g Pencan through Hustead, clear CSF, 2.5mg MPF bupiv) Loss of resistance with: saline AVILA at (cm): 6 Catheter placed at SKIN (cm): 11 Catheter in SPACE (cm): 5 Insertion: No CSF, No Blood, No Paresthesia with insertion, No Paresthesia with injection and No Test dose reaction Initial Medications TEST DOSE time: 21:07 TEST DOSE: 1.5% lidocaine with epinephrine 1:200k (mL): 3 BOLUS DOSE time: 21:19 BOLUS DOSE (mL): 4 BOLUS DOSE med: other (infusate) Infusion INFUSION: 0.125% bupivacaine and with fentanyl 2 mcg/mL Initial rate (mL/hr): 8 Post-procedure Anesthesia time START: 20:51 Anesthesia time END: 06:02 Post-procedure Anesthesia Assessment: Yes CV function: HR/BP stable, Yes Resp function: RR/sat/airway adequate, Yes Mental status appropriate and No Anesthesia complications
--- NOTE | 2022-06-28 22:34 | PM.OBHP.IH.1 ---
OB HPI Date/Time Date of admission: 06/28/22 Date Patient Seen: 06/28/22 Time Patient Seen: 22:34 History of Present Condition Chief complaint: Contractions HUE Calculator Estimated Delivery Date Method Current WG Current Estimate 07/05/22 Manual 39w 0d Final HUE - GISEL Other Estimates 07/05/22 LMP (Certain) 39w 0d 07/06/22 Ultrasound #1 38w 6d Estimated Gestational Age (weeks): 39w0d : 3 Para: 1 Narrative: 31yo at 39w0d who presented with regular painful contractions. Pt reports contractions increasing in intensity this evening, after being in L&D for r/o labor last night. She denies any vaginal bleeding or LOF. She is feeling her baby move regularly. Pts was complicated by 2 vessel cord with reassuring testing, in addition to cleft palate with negative cfDNA and expanded carrier testing. Pt also with GDMA1 with excellent blood sugar control. care: good care, initiated at week # (11) and pounds weight gain (28) Dating criteria OB: LMP confirmed by 1st trimester US Ultrasounds: normal 1st trimester US and abnormal US findings Abnormal ultrasound findings: cleft palate, 2-vessel cord Obstetrical complications: gestational diabetes Medical complications OB: none Preadmission Labs Last OB Lab Results: Blood Type B Positive 06/28/22 18:30 Antibody Screen Negative 06/28/22 18:30 Hematocrit 35.7 % (36-46) L 06/28/22 18:30 Hemoglobin 12.1 g/dL (12.0-16.0) 06/28/22 18:30 Hepatitis B Surface Antigen Negative s/c (NEGATIVE) 01/14/22 13:07 Hepatitis C Antibody Negative s/c (NEGATIVE) 01/14/22 13:07 Rubella Antibody 58.6 IU/mL (>15) 01/14/22 13:07 Varicella-Zoster IgG Antibody 951 index (Immune >165) 01/14/22 13:07 Glucose 1 Hour 160 mg/dL (76-139) H 04/25/22 08:57 Group B Streptococcus (PCR) Neg for grp b strep 06/13/22 15:34 Glucose Tolerance Testing: Fasting (87), 1 hr (209), 2 hr (148) and 3 hr (140) -: Urine: positive (E coli) Genetic Screens: Cell-free DNA: Normal External Labs -: Urine: positive (E coli) Prior (ies) Past Pregnancies Del. Date GA/Weeks Labor Lgth Wt Sex Route Outcome Anesthesia Place Delv Breastfeed Preg Comp Name 11/29/18 9 spontaneous [facility]- [facility] Rachael spontaneous 11/18/19 37 7 6 lb 15 oz Female vaginal live - epidural IH 3 mo delivery Denice Delivery Date: 11/29/18 Last Updated by: Kelsey Archer MA D&C for Missed . Delivery Date: 11/18/19 Last Updated by: Tammie Velazco R.N. borderline by Dr. Gayle Evaluation Evaluation Baseline heart rate: 120 Variability: Moderate (11-25) monitor accelerations: Present Monitor Decelerations: Absent Contraction Frequency (minutes): 2 Uterine Contraction Intensity: Strong/Firm Status: Category l Dilation (cm): 7 Effacement (%): 90 station: -1 Position of cervix: anterior Consistency: soft Comments: After informed consent, AROM performed with production of clear fluid [facility] Medical History Anemia Anxiety Dysphagia Gum disease Lyme disease Migraines Strabismic amblyopia of left eye Surgical History H/O eye surgery History of dilatation and curettage (~2018) History of tonsillectomy [place] teeth extracted (~2006) Family History Mother Breast cancer Depression Father Thyroid condition Family/Other Cardiac hypertrophy Grandfather Heart disease Grandmother No problems noted. Grandfather Congestive heart failure Kidney failure Grandmother Congestive heart failure COPD (chronic obstructive pulmonary disease) Social History marital status: number of children: 1 household members: spouse and children lives independently: Yes housing: house pets and animals: Yes (Dog X 1, aware of Toxoplasmosis) education level: college occupational status: unemployed (IH) and previously employed current occupational exposures/hazards: No special raul needs: No seatbelt use: always water heater temp set < 120 deg: Yes working smoke detector in home: Yes fire extinguisher in home: Yes carbon monox detector in home: Yes firearms in home: Yes firearms unloaded and locked: Yes do you feel safe at home: Yes Smoking Status: Never smoker second hand exposure: No alcohol intake: former substance use type: does not use during the past year weight has: remained stable well-balanced diet: daily or most days daily servings fruits/ve-4 caffeine: No (200mg per day) Type(s) of exercise: regular exercise frequency: 3-4 times per week Meds Home Medications and Allergies Home Medications Medication Instructions Recorded Confirmed Type prenat.vits,reuben,asu-uldy-zqtrm 1 tab PO DAILY 10/12/19 06/02/22 History Glucose test strips #100 05/08/22 06/02/22 Rx glucometer #1 05/08/22 06/02/22 Rx double electric breast pump #1 05/12/22 06/02/22 Rx Allergies Allergy/AdvReac Type Severity Reaction Status Date / Time No Known Drug Allergies Allergy Verified 06/02/22 13:50 OB Exam Narrative Exam Narrative: Gen: NAD, sitting comfortably in bed, appears well CV: RRR, no murmurs Resp: clear to auscultation bilaterally Abd: soft, nontender, gravid Ext: no edema Objective Labs Result Diagrams: 06/28/22 18:30 Labs: Laboratory Results - last 24 hr 06/28/22 06/28/22 06/28/22 18:30 18:30 18:40 WBC 9.7 RBC 4.32 Hgb 12.1 Hct 35.7 L MCV 82.6 MCH 28.0 MCHC 34.0 RDW 14.7 Plt Count 168 Neut % (Auto) 72.6 Lymph % (Auto) 18.3 L [place] % (Auto) 6.7 Eos % (Auto) 1.6 L Baso % (Auto) 0.8 Neut # (Auto) 7000 Lymph # (Auto) 1800 [place] # (Auto) 700 Eos # (Auto) 200 Baso # (Auto) 100 SARS-CoV-2 (PCR) Negative Blood Type B Positive Antibody Screen Negative Assessment and Plan Assessment and Plan Assessment and Plan narrative: 31yo at 39w0d here in active labor. complicated by GDMA1 with excellent control, 2 vessel cord, and cleft palate with negative cfDNA and expanded carrier testing. GBS negative, Rh positive. AROM performed with production of clear fluid. - Expectant management, anticipate - FHT reassuring - GBS negative, no prophylaxis indicated - Epidural in place for pain control
[2022-06-29] MEDS: FENT 2MCG/ML BUPIV 0.125% EPI 200 MCG/100 ML PLAST..BAG 6 MCG EPIDURAL (02:33)
[2022-06-29] MEDS: OXYTOCIN PREMIX 30 UNIT/500 ML PLAST..BAG 200 UNIT IV (05:59)
--- NOTE | 2022-06-29 06:14 | PM.OBPRVD ---
Labor & Delivery Intrapartal Events: None Cervical ripening method: none Induction method: none Delivery augmentation: rupture of membranes Delivery monitor: external FHT and external uterine Route of delivery: Episiotomy description: None L&D Laceration Description: None Estimated blood loss (mL): 200 Anesthesia Type: Epidural Complications: None Narrative: PROCEDURE: at 39w0d presented in active labor and was admitted to Labor and Delivery. The patient progressed through the 1st stage over 11 hours. Pain was controlled with an epidural. AROM was performed with production of clear fluid. The patient progressed through the 2nd stage over 1 hour and delivered a viable male infant with APGARs 8/9 at 5:52 via without complications. The cord was cut and clamped after it stopped pulsating. The perineum and vagina were inspected with no lacerations. PREPROCEDURE DIAGNOSIS: Intrauterine at 39w1d Cleft palate 2 vessel umbilical cord GDMA1 GBS negative RH positive POSTPROCEDURE DIAGNOSIS: Intrauterine at 39w1d, delivered Same as preprocedure Baby 1: Infant gender: Male Presentation: vertex Position: Right Occiput Anterior Placenta delivery description: Spontaneous Cord Vessel Description: 2 Vessels score (1 min): 8 score (5 min): 9 weight: 8 lb 2.831 oz Plan for aftercare: Routine care
[2022-06-29] MEDS: ACETAMINOPHEN 325 MG TABLET 650 MG PO ×2 (11:04→19:31)
[2022-06-29] MEDS: DOCUSATE 100 MG CAPSULE PO (11:04)
[2022-06-29] MEDS: IBUPROFEN 600 MG TABLET PO ×2 (11:05→19:30)
[2022-06-29] MEDS: PRENATAL VIT,CALC/IRON/FOLIC 1 TABLET 1 TAB PO (11:05)
[2022-06-30] MEDS: IBUPROFEN 600 MG TABLET PO ×2 (01:36→08:12)
[2022-06-30] MEDS: ACETAMINOPHEN 325 MG TABLET 650 MG PO (01:36)
[2022-06-30] MEDS: DOCUSATE 100 MG CAPSULE PO (08:12)
[2022-06-30] MEDS: PRENATAL VIT,CALC/IRON/FOLIC 1 TABLET 1 TAB PO (08:13)
--- NOTE | 2022-06-30 09:30 | P.DS_ITS ---
Discharge Providers Provider Date of admission: 06/28/22 18:06 Discharge Date: 06/30/22 Primary care physician: Cheng Gayle MD Consults: 06/30/22 06:13 Consult to Area Forester Routine Comment: Discharge provider: Carolyn Redman MD Summary Hospital Course Date Patient Seen: 06/30/22 Time Patient Seen: 09:31 Diagnoses: Intrauterine at 39w1d Cleft palate 2 vessel umbilical cord GDMA1 GBS negative RH positive Spontaneous vaginal delivery Hospital Course: The pt presented in active labor. She had an epidural for pain control. AROM was performed with clear fluid present. She progressed to complete and had an of a viable baby boy at 5:52am on 06/29/22. There were no lacerations. There were no complications with delivery. , there were also no complications. At the time of discharge she was voiding, ambulating, and passing flatus without difficulty. She was with good latch. The infant had no signs of cleft palate on exam. Her pain was well controlled. She will f/u in 6 wks for check. Her is considering vasectomy for contraception. Peripartum Data Infant Delivery Method: Natural Vaginal Laceration Description: None Episiotomy description: None Procedures: Spontaneous vaginal delivery complications: none Status at Discharge Cognitive/behavioral status at discharge: oriented Functional status at discharge: independent ambulation Overall status at discharge: patient is progressing back to baseline Time Spent with Patient Time attestation: Total time spent providing and/or coordinating discharge services: Objective Labs Result Diagrams: 06/28/22 18:30 Exam Narrative Exam Narrative: Gen: NAD, sitting comfortably in bed, appears well CV: RRR, no murmurs Resp: clear to auscultation bilaterally Abd: soft, appropriately tender, fundus firm and below the umbilicus, nondistended Ext: no edema Discharge Plan Discharge Plan Patient Disposition: Home Discharge orders & Medications Prescriptions: Continued (DME) double electric breast pump See Rx Instructions .Route .MEDSUPPLY Qty: 1 0RF Rx Instructions: As directed Code E.0603 prenat.vits,reuben,[id number] Tablet 1 tab PO DAILY Discontinued (DME) glucometer kit See Rx Instructions .Route .MEDSUPPLY Qty: 1 0RF Rx Instructions: test glucose level once a day while fasting and then once a day 2 hours post prandial (DME) Glucose test strips See Rx Instructions .Route .MEDSUPPLY Qty: 100 0RF Rx Instructions: test glucose level once a day while fasting and then once a day 2 hours post prandial Follow up/Referrals: Carolyn Redman MD [Physician] - 08/13/22 10:15 am (Please arrive at 10:15 for check in, appointment at 10:30!) Diet/Activity/Treatments Diet: Diet as Tolerated and Regular Skin/Wound/Dressing Care Report to your healthcare provider any signs of infection, such as:: chills, fever, increased pain and unusual drainage Visit Report/Discharge Packet Instructions: DI for Labor and Delivery, Vaginal Visit Report Forms: Patient Portal/API, Stroke Signs & Symptoms Discharge Data Primary Care Provider: Cheng Gayle
[2022-06-30 12:55] VITALS: BP 113/69; PULSE 70; RESP 20; TEMP 36.2
== END 2022-06-30 12:43 | disposition home or self-care (01) | DRG 807 ==
PROVIDERS: Admitting Provider Family Medicine; PCP Family Medicine; Referring Provider Family Medicine; Visit Provider Family Medicine
DX: O24.420 Gestational diabetes mellitus in childbirth, diet controlled (principal); Z37.0 Single live birth; Z3A.39 39 weeks gestation of pregnancy; O43.193 Other malformation of placenta, third trimester; Z20.822 Contact with and (suspected) exposure to COVID-19
CPT/HCPCS: 01967; 36415; 59050; 59400; 85025; 86850; 86900; 86901; 87635; C9803; G0379; J2590

== ENCOUNTER → 2022-09-29 15:21 | Outpatient (CLI) | payer OTHER, SELFPAY | PROVIDERS: PCP Family Medicine; Referring Provider Internal Medicine; Visit Provider Internal Medicine | DX: Z23 Encounter for immunization (principal) | CPT/HCPCS: 90471; 90686 ==

== ENCOUNTER → 2023-08-26 14:43 | Outpatient (CLI) | payer OTHER, SELFPAY | PROVIDERS: PCP Family Medicine; Referring Provider Family Medicine; Visit Provider Family Medicine | DX: Z23 Encounter for immunization (principal) | CPT/HCPCS: 90471; 90686 ==